=== PATIENT | female | born 1995 | race Hispanic/Latino ===

== ENCOUNTER 2017-04-21 00:42 | Emergency (ER) | payer BC, OTHER ==
[2017-04-21] MEDS ORDERED: Sodium Chloride 0.9% 1,000 ML IV STA (01:13)
[2017-04-21 01:48] LABS: BASO # 0.01 K/mm3 (0.0-2.0); BASO % 0.1 % (0.0-3.0); EOS % 0.1 % (1.5-5.0); GRAN # 15.29 (1.4-6.5); GRAN % 92.6 % (50.0-68.0); HEMOGLOBIN 13.4 g/dL (12.0-16.0); LYMPH # 0.3 (1.2-3.4); LYMPH % 1.9 % (22.0-35.0); MEAN CELL VOLUME 88.4 fl (80.0-105.0); MEAN CORPUSCULAR HEMOGLOBIN 28.9 pg (25.0-35.0); MEAN CORPUSCULAR HGB CONC 32.7 g/dl (31.0-37.0); MEAN PLATELET VOLUME 10.4 fl (7.0-11.0); MONO # 0.9 (0.1-0.6); MONO % 5.3 % (1.0-6.0); PLATELET COUNT 341 10^3/uL (120.0-450.0); RBC 4.64 10^6/uL (3.5-6.1); RED CELL DISTRIBUTION WIDTH 14.2 % (11.5-14.5); WHITE BLOOD COUNT 16.5 10^3/ul (4.5-11.0)
--- NOTE | 2017-04-21 01:49 | ED PDOC ---
Arrival/HPI - General Historian: Patient <Esteban Quintana - Last Filed: 04/21/17 03:04> <Greg Cast - Last Filed: 04/21/17 06:36> - General Chief Complaint: Abdominal Pain Time Seen by Provider: 04/21/17 01:01 - History of Present Illness Narrative History of Present Illness (Text): 04/21/17 01:46 22yo female with no PMHx present with complaint of diffuse abdominal pain, nausea, vomiting, diarrhea, back pain since 1900. States unable to keep anything down. Denies fever, chills, urinary symptoms, tearing/ripping upper back pain, sick contact, any other contact. (Esteban Quintana A) Past Medical History - Provider Review Nursing Documentation Reviewed: Yes - Psychiatric Hx Psychophysiologic Disorder: No Hx Substance Use: No - Anesthesia Hx Anesthesia: No <MarianoEsteban Morales - Last Filed: 04/21/17 03:04> Family/Social History - Physician Review Nursing Documentation Reviewed: Yes Family/Social History: Unknown Family HX Smoking Status: Never Smoked Hx Alcohol Use: No Hx Substance Use: No <MarianoEsteban A - Last Filed: 04/21/17 03:04> Allergies/Home Meds <jeancarlosEsteban A - Last Filed: 04/21/17 03:04> <Greg Cast - Last Filed: 04/21/17 06:36> Allergies/Adverse Reactions: Allergies amoxicillin [From Augmentin] Adverse Reaction (Verified 04/21/17 00:52) RASH clavulanic acid [From Augmentin] Adverse Reaction (Verified 04/21/17 00:52) RASH Home Medications: Home Meds Medication Instructions Recorded Confirmed No Known Home Med 04/21/17 04/21/17 Review of Systems - Review of Systems Constitutional: Normal Eyes: Normal ENT: Normal Respiratory: Normal Cardiovascular: Normal Gastrointestinal: Abdominal Pain, Diarrhea, Nausea, Vomiting. absent: Constipation, Hematochezia, Hematemesis Genitourinary Female: Normal Musculoskeletal: Back Pain Skin: Normal Neurological: Normal Endocrine: Normal Hemo/Lymphatic: Normal Psychiatric: Normal <jeancarlosEsteban A - Last Filed: 04/21/17 03:04> Physical Exam Vital Signs Reviewed: Yes Temperature: Afebrile Blood Pressure: Normal Pulse: Regular Respiratory Rate: Normal Appearance: Positive for: Well-Appearing, Non-Toxic, Comfortable Pain Distress: None Mental Status: Positive for: Alert and Oriented X 3 - Systems Exam Head: Present: Atraumatic, Normocephalic Pupils: Present: PERRL Extroacular Muscles: Present: EOMI Conjunctiva: Present: Normal Mouth: Present: Moist Mucous Membranes Neck: Present: Normal Range of Motion Respiratory/Chest: Present: Clear to Auscultation, Good Air Exchange. No: Respiratory Distress, Accessory Muscle Use Cardiovascular: Present: Regular Rate and Rhythm, Normal S1, S2. No: Murmurs Abdomen: Present: Tenderness (Mild tenderness with deep palpation), Normal Bowel Sounds, Other (soft). No: Distention, Peritoneal Signs, Rebound, Guarding , McBurney's Point Tender, Rovsing's Sign Present Back: Present: Normal Inspection. No: CVA Tenderness Upper Extremity: Present: Normal Inspection. No: Cyanosis, Edema Lower Extremity: Present: Normal Inspection. No: Edema Neurological: Present: GCS=15, CN II-XII Intact, Speech Normal Skin: Present: Warm, Dry, Normal Color. No: Rashes Psychiatric: Present: Alert, Oriented x 3, Normal Insight, Normal Concentration <MarianoHappiness A - Last Filed: 04/21/17 03:04> Vital Signs Temp Pulse Resp BP Pulse Ox 04/21/17 05:36 107 H 19 116/64 99 04/21/17 01:32 110 H 18 109/79 99 04/21/17 00:49 98.7 F 90 17 107/61 97 Medical Decision Making <MarianoHappiness A - Last Filed: 04/21/17 03:04> - RAD Interpretation Switchbox Assembler: Radiologist <Greg Cast - Last Filed: 04/21/17 06:36> ED Course and Treatment: 04/21/17 03:04 22yo female in ED for abdominal pain, N/V and back pain since 1900 Lab was ordered Zofran, Pepcid, 1L NS Leukocytosis was noted and abdominal/pelvic CT was added pending Case was endorsed to dr. Cast to f/u CT and dispo pt. (Diru,Happiness A) 04/21/17 04:19 CT Abdomen and Pelvis shows: The liver is normal. The spleen is normal. The pancreas is normal. No gallstones. No hydronephrosis or perinephric stranding. There are a few small bowel loops in the deep pelvis that are distended with fluid measuring up to 2 cm in maximal width. There are nondilated loops both proximal and distal to the cluster and the terminal ileum is distended with fluid. These findings suggest the distention is not secondary to obstruction( which would result in only distal decompression including the terminal ileum). There is fluid in the ascending colon and rectum. A normal appendix is identified series 3 images 87 through 113, coronal images 41 through 54. Multiple small scattered mesenteric lymph nodes are present. The uterus and ovaries appear normal. IMPRESSION: Portions of the small and large bowel are distended with fluid, a finding that may be associated with diarrhea producing enteritis. 04/21/17 06:[address] Brit Stanton, who is aware and agrees with plan. Accepts pt in to his service. Pt will go to [facility] observation for abdominal pain, leukocytosis, and intractable vomiting. (Greg Cast) - Lab Interpretations Lab Results: 04/21/17 05:06 04/21/17 01:30 Lab Results 04/21/17 05:06: WBC 13.7 H, RBC 4.45, Hgb 12.5, Hct 39.4, MCV 88.5, MCH 28.1, MCHC 31.7, RDW 14.6 H, Plt Count 321, MPV 11.0 04/21/17 02:35: Urine Color Yellow, Urine Appearance Sl cloudy, Urine pH 7.0, Ur Specific [place] 1.025, Urine Protein 100 H, Urine Glucose (UA) Negative, Urine Ketones 40 H, Urine Blood Moderate H, Urine Nitrate Negative, Urine Bilirubin Small H, Urine Urobilinogen 0.2, Ur Leukocyte Esterase Negative, Urine RBC 2 - 5, Urine WBC 0 - 2, Ur Epithelial Cells 1 - 3, Urine Bacteria Mod 04/21/17 01:38: Influenza Typ A,B (EIA) Negative for flu a/b 04/21/17 01:30: Sodium 142, Potassium 4.3, Chloride 104, Carbon Dioxide 25, Anion Gap 18, BUN 14, Creatinine 0.7, Est GFR ( Amer) > 60, Est GFR (Non- Af Amer) > 60, Random Glucose 153 H, Calcium 9.7, Total Bilirubin 0.7, AST 24, ALT 31, Alkaline Phosphatase 54, Total Protein 8.0, Albumin 4.7, Globulin 3.3, Albumin/Globulin Ratio 1.4, Lipase 51 04/21/17 01:30: PT 12.1, INR 1.06, APTT 26.6 04/21/17 01:30: WBC 16.5 H, RBC 4.64, Hgb 13.4, Hct 41.0, MCV 88.4, MCH 28.9, MCHC 32.7, RDW 14.2, Plt Count 341, MPV 10.4, Gran % 92.6 H, Lymph % (Auto) 1.9 L, [place] % (Auto) 5.3, Eos % (Auto) 0.1 L, Baso % (Auto) 0.1, Gran # 15.29 H, Lymph # 0.3 L, [place] # 0.9 H, Eos # 0.0, Baso # 0.01, Neutrophils % (Manual) 83 H , Band Neutrophils % 5 H, Lymphocytes % (Manual) 3 L, Monocytes % (Manual) 4, Eosinophils % (Manual) 1, Metamyelocytes % 2, Myelocytes % 2, Platelet Evaluation Normal - RAD Interpretation Radiology Orders: 04/21/17 02:17 ABD & PELVIS IV CONTRAST ONLY [CT] Stat - Medication Orders Current Medication Orders: Discontinued Medications Famotidine (Pepcid) 20 mg IVP STAT STA Stop: 04/21/17 01:14 Last Admin: 04/21/17 01:40 Dose: 20 mg IVP Administration Document 04/21/17 01:40 CNR (Rec: 04/21/17 01:40 CNR [id number]) Charges for Administration # of IVP Administrations 1 Sodium Chloride (Sodium Chloride 0.9%) 1,000 mls @ 1,000 mls/hr IV .Q1H STA Stop: 04/21/17 02:12 Last Admin: 04/21/17 01:40 Dose: 1,000 mls/hr eMAR Start Stop Document 04/21/17 01:40 CNR (Rec: 04/21/17 01:40 CNR [id number]) Intravenous Solution Start Date 04/21/17 Start Time 01:40 Sodium Chloride (Sodium Chloride 0.9%) 500 mls @ 500 mls/hr IV .Q1H STA Stop: 04/21/17 06:33 Last Admin: 04/21/17 05:39 Dose: 500 mls/hr eMAR Start Stop Document 04/21/17 05:39 CNR (Rec: 04/21/17 05:39 CNR [id number]) Intravenous Solution Start Date 04/21/17 Start Time 05:39 Ketorolac Tromethamine (Toradol) 30 mg IVP STAT STA Stop: 04/21/17 01:14 Last Admin: 04/21/17 02:41 Dose: 30 mg MAR Pain Assessment Document 04/21/17 02:41 CNR (Rec: 04/21/17 02:42 CNR [id number]) Pain Reassessment Is this a pain reassessment? Yes Location Pain Location Body Site Abdomen Back IVP Administration Document 04/21/17 02:41 CNR (Rec: 04/21/17 02:42 CNR [id number]) Charges for Administration # of IVP Administrations 1 Ondansetron HCl (Zofran Inj) 4 mg IVP STAT STA Stop: 04/21/17 01:14 Last Admin: 04/21/17 01:40 Dose: 4 mg IVP Administration Document 04/21/17 01:40 CNR (Rec: 04/21/17 01:40 CNR [id number]) Charges for Administration # of IVP Administrations 1 Ondansetron HCl (Zofran Inj) 4 mg IVP ONCE ONE Stop: 04/21/17 05:34 Last Admin: 04/21/17 05:50 Dose: 4 mg IVP Administration Document 04/21/17 05:50 CNR (Rec: 04/21/17 05:50 CNR [id number]) Charges for Administration # of IVP Administrations 1 Disposition/Present on Arrival - Present on Arrival Any Indicators Present on Arrival: No History of DVT/PE: No History of Uncontrolled Diabetes: No Urinary Catheter: No History of Decub. Ulcer: No History Surgical Site Infection Following: None <Diru,Happiness A - Last Filed: 04/21/17 03:04> - Present on Arrival Any Indicators Present on Arrival: No History of DVT/PE: No History of Uncontrolled Diabetes: No Urinary Catheter: No History of Decub. Ulcer: No History Surgical Site Infection Following: None - Disposition Have Diagnosis and Disposition been Completed?: Yes Disposition Time: 06:36 Patient Plan: Observation <Greg Cast - Last Filed: 04/21/17 06:36> - Disposition Diagnosis: Gastroenteritis, Abdominal pain, Intractable vomiting, Leukocytosis Disposition: HOSPITALIZED Condition: STABLE Referrals: Romy DEL VALLE,Jorden Mixon MD [Primary Care Provider] - Follow up with primary Forms: [employer] (Faroese)
[2017-04-21 01:56] LABS: ALB/GLOB RATIO 1.4 (1.1-1.8); ALBUMIN 4.7 g/dL (3.0-4.8); ALT/SGPT 31 U/L (7-56); AST/SGOT 24 U/L (14-36); BLOOD UREA NITROGEN 14 mg/dL (7-21); CALCIUM 9.7 mg/dL (8.4-10.5); GFR AFRICAN-AMERICAN > 60; GFR NON-AFRICAN AMERICAN > 60; LIPASE 51 U/L (23-300)
[2017-04-21 02:13] LABS: INR 1.06 (0.93-1.08); PARTIAL THROMBOPLASTIN TIME 26.6 Seconds (25.1-36.5); PROTHROMBIN TIME 12.1 SECONDS (9.4-12.5)
[2017-04-21 02:52] LABS: URINE BILIRUBIN SMALL (NEGATIVE); URINE BLOOD MODERATE (NEGATIVE); URINE GLUCOSE (UA) NEGATIVE (NEGATIVE); URINE LEUKOCYTE ESTERASE NEGATIVE Leu/uL (NEGATIVE); URINE NITRATE NEGATIVE (NEGATIVE); URINE PROTEIN 100 mg/dL (<30 mg/dL); URINE UROBILINOGEN 0.2 E.U./dL (<1 E.U./dL)
[2017-04-21] MEDS ORDERED: Iohexol 350 MG/100 ML VIAL ONE (02:56)
[2017-04-21 03:23] LABS: URINE APPEARANCE SL CLOUDY (CLEAR); URINE COLOR YELLOW (YELLOW)
[2017-04-21 03:25] LABS: URINE WBC 0 - 2 /hpf (0-6)
[2017-04-21 03:26] LABS: URINE BACTERIA MOD (NEG)
[2017-04-21 03:26] LABS: BAND 5 % (0-2); LYMPHOCYTE 3 % (22.0-35.0); MONOCYTE 4 % (1.0-6.0); NEUTROPHIL 83 % (50.0-70.0)
[2017-04-21 03:27] LABS: EOSINOPHIL 1 % (0.0-3.0); METAMYELOCYTE 2 %; MYELOCYTE 2 %; PLATELET ESTIMATE NORMAL (NORMAL)
--- NOTE | 2017-04-21 04:15 | CT ---
EXAM: CT Abdomen and Pelvis With Intravenous Contrast EXAM DATE/TIME: 04/21/2017 2:17 AM CLINICAL HISTORY: 22 years old, female; Pain; Abdominal pain; Generalized; Additional info: Abdominal pain with nausea and diarrhea. TECHNIQUE: Axial computed tomography images of the abdomen and pelvis with intravenous contrast. All CT scans at this facility use one or more dose reduction techniques, viz.: automated exposure control; ma/kV adjustment per patient size (including targeted exams where dose is matched to indication; i.e. head); or iterative reconstruction technique. CONTRAST: 100 mL of OMNI administered intravenously. COMPARISON: No relevant prior studies available. FINDINGS: The liver is normal. The spleen is normal. The pancreas is normal. No gallstones. No hydronephrosis or perinephric stranding. There are a few small bowel loops in the deep pelvis that are distended with fluid measuring up to 2 cm in maximal width. There are nondilated loops both proximal and distal to the cluster and the terminal ileum is distended with fluid. These findings suggest the distention is not secondary to obstruction( which would result in only distal decompression including the terminal ileum). There is fluid in the ascending colon and rectum. A normal appendix is identified series 3 images 87 through 113, coronal images 41 through 54. Multiple small scattered mesenteric lymph nodes are present. IMPRESSION: Portions of the small and large bowel are distended with fluid, a finding that may be associated with diarrhea producing enteritis.
[2017-04-21] MEDS ORDERED: Sodium Chloride 0.9% 500 ML IV STA (05:34)
[2017-04-21 06:18] LABS: HEMOGLOBIN 12.5 g/dL (12.0-16.0); MEAN CELL VOLUME 88.5 fl (80.0-105.0); RBC 4.45 10^6/uL (3.5-6.1); WHITE BLOOD COUNT 13.7 10^3/ul (4.5-11.0)
[2017-04-21 06:19] LABS: MEAN CORPUSCULAR HEMOGLOBIN 28.1 pg (25.0-35.0); MEAN CORPUSCULAR HGB CONC 31.7 g/dl (31.0-37.0); RED CELL DISTRIBUTION WIDTH 14.6 % (11.5-14.5)
[2017-04-21 08:06] VITALS: RESP 18; TEMP 98.3; O2SAT 98
[2017-04-21 11:16] VITALS: BP 120/79; PULSE 72
== END 2017-04-21 11:13 | disposition home or self-care (01) ==
LOC: ED 00:42 → UNDOADMOB 06:30 → ERH 06:30 → ED 11:13
DX: K52.9 Noninfective gastroenteritis and colitis, unspecified (principal); D72.829 Elevated white blood cell count, unspecified
CPT/HCPCS: 74177; 80053; 81001; 83690; 85025; 85027; 85610; 85730; 87804; 96374; 96375; 96376; 99285; J1885; J2405; J7040; Q9967